=== PATIENT | female | born 1995 | race Caucasian/White ===

== ENCOUNTER 2019-07-29 10:16 | Emergency (ER) | payer BC ==
[~2019-07-29] VITALS: Ht 172.7 cm; Wt 82.0 kg
[~2019-07-29 10:16] MED LIST: AUGMENTINES600 OR; BIRTH CONTROL; KEFLEX500 MG PO; LOESTRIN 24 PO; LORTAB5 OR; MOTRIN400 MG OR; NO HOME MEDS; NO HOMEMEDS; SULFATRIM1 ML OR; YASMIN 281 TAB PO
[2019-07-29] MEDS ORDERED: NAPROXEN500 MG PO (11:01)
[2019-07-29 11:10] VITALS: BP 130/84
== END 2019-07-29 11:10 | disposition home or self-care (01) | DRG 605 ==
LOC: ED 10:16
DX: S60.032A Contusion of left middle finger without damage to nail, initial encounter (principal); W55.29XA Other contact with cow, initial encounter; Y93.89 Activity, other specified; Y92.009 Unspecified place in unspecified non-institutional (private) residence as the place of occurrence of the external cause